=== PATIENT | female | born 1985 | race Two or more races ===

== ENCOUNTER 2019-10-21 18:22 | Emergency (ER) | payer SELFPAY ==
[~2019-10-21] VITALS: Ht 170.2 cm; Wt 112.0 kg
[~2019-10-21 18:22] MED LIST: LEVE500T22 PO
[2019-10-21 18:37] VITALS: BP 142/90
[2019-10-21] MEDS ORDERED: ENOXAPARIN SOD 100 MG/1 ML SYRINGE SC ONE (19:15)
== END 2019-10-21 19:49 | disposition home or self-care (01) ==
LOC: ER 18:22
DX: I82.622 Acute embolism and thrombosis of deep veins of left upper extremity (principal); Z88.6 Allergy status to analgesic agent; Z88.8 Allergy status to other drugs, medicaments and biological substances
CPT/HCPCS: 96372; 99283; J1650

== ENCOUNTER 2019-10-29 15:19 | Inpatient (IN) | payer SELFPAY ==
[~2019-10-29] VITALS: Ht 170.2 cm; Wt 113.5 kg
[2019-10-29 16:40] LABS: Urine Bacteria FEW /hpf (None Seen); Urine Blood Negative /uL (Negative); Urine Specific Gravity 1.007 (1.001-1.035); Urine WBC 1 /hpf (0 - 5)
[2019-10-29 16:48] LABS: Basophils # (auto) 0 uL; Basophils % (auto) 0.4 % (0.0-2.0); Eosinophils # (auto) 0.1 uL; Eosinophils % (auto) 1.5 % (0.0-7.0); Hematocrit 37.3 % (36.0-46.0); Hemoglobin 12.8 g/dL (12.2-16.2); Lymphocytes # (auto) 3.2 uL; Mean Corpuscular Hemoglobin 29.8 pg (28.0-32.0); Mean Corpuscular Hgb Conc. 34.4 g/dL (32.0-36.0); Mean Corpuscular Volume 86.5 fL (80.0-100.0); Monocytes # (auto) 0.4 uL; Monocytes % (auto) 5.8 % (0.0-12.0); Neutrophils % (auto) 51.3 % (37.0-80.0); Platelet Count (auto) 221 10^3/uL (140-450); Red Blood Cells 4.31 10^6/uL (4.0-5.20); Red Cell Distribution Width 13.6 % (11.8-14.3); White Blood Cell 7.8 10^3/uL (4.4-10.8)
[2019-10-29 17:06] LABS: Albumin 3.5 g/dL (3.4-5.0); BUN/Creatinine Ratio 10.6; Calcium 8.9 mg/dL (8.5-10.1); Potassium 3.7 mmol/L (3.5-5.1)
[2019-10-29 17:08] LABS: Bilirubin, Total 0.3 mg/dL (0.2-1.0); Total Protein 7.6 g/dL (6.4-8.2)
[2019-10-29 17:12] LABS: INR 1.2 (0.9-1.15)
[2019-10-29] MEDS ORDERED: MORPHINE SULFATE 4 MG/ML SYR/VIAL IV ONE (20:00)
[2019-10-29] MEDS ORDERED: ONDANSETRON HCL 4 MG/2 ML VIAL IV ONE (20:00)
[2019-10-29] MEDS ORDERED: HYDROmorphone HCL 2 MG/ML VL IV ONE (20:15)
[2019-10-29] MEDS ORDERED: HEPARIN DRIP/D5W 100UNITS/ML 250 ML IV SCH (21:36)
[2019-10-29] MEDS ORDERED: HEPARIN SODIUM (PORCINE) 5000 UNITS/ML 1ML VIAL IV ONE ×2 (21:45)
[2019-10-29 22:49] LABS: Basophils # (auto) 0.1 uL; Basophils % (auto) 1.1 % (0.0-2.0); Eosinophils # (auto) 0.1 uL; Eosinophils % (auto) 0.9 % (0.0-7.0); Hematocrit 39.2 % (36.0-46.0); Lymphocytes # (auto) 3.4 uL; Lymphocytes % (auto) 40.3 % (10.0-50.0); Mean Corpuscular Hemoglobin 28.8 pg (28.0-32.0); Mean Corpuscular Hgb Conc. 33.3 g/dL (32.0-36.0); Mean Corpuscular Volume 86.7 fL (80.0-100.0); Monocytes # (auto) 0.3 uL; Monocytes % (auto) 3.7 % (0.0-12.0); Neutrophils # (auto) 4.6 uL; Nucleated Red Blood Cells % 0.1 %; Platelet Count (auto) 203 10^3/uL (140-450); Red Blood Cells 4.52 10^6/uL (4.0-5.20); Red Cell Distribution Width 13.7 % (11.8-14.3); White Blood Cell 8.4 10^3/uL (4.4-10.8)
[2019-10-29 22:58] LABS: INR 1.05 (0.9-1.15); Partial Thromboplastin Time 26.5 sec (23.64-32.05)
[2019-10-29] MEDS ORDERED: ONDANSETRON HCL 4 MG/2 ML VIAL IV PRN (23:15)
[2019-10-30] MEDS: LORazepam 0.5 MG TAB PO PRN ×2 (02:10→02:12)
[2019-10-30] MEDS ORDERED: RIV20T PO (03:32)
[2019-10-30 05:00] VITALS: BP 154/78
[2019-10-30 06:03] LABS: Basophils # (auto) 0 uL; Basophils % (auto) 0.6 % (0.0-2.0); Eosinophils # (auto) 0.1 uL; Eosinophils % (auto) 1.4 % (0.0-7.0); Hematocrit 36.3 % (36.0-46.0); Hemoglobin 12.5 g/dL (12.2-16.2); Lymphocytes # (auto) 3.7 uL; Mean Corpuscular Hemoglobin 29.8 pg (28.0-32.0); Mean Corpuscular Hgb Conc. 34.5 g/dL (32.0-36.0); Mean Corpuscular Volume 86.2 fL (80.0-100.0); Monocytes # (auto) 0.2 uL; Monocytes % (auto) 3.5 % (0.0-12.0); Neutrophils % (auto) 42.5 % (37.0-80.0); Nucleated Red Blood Cells % 0.1 %; Platelet Count (auto) 195 10^3/uL (140-450); Red Blood Cells 4.21 10^6/uL (4.0-5.20); Red Cell Distribution Width 13.8 % (11.8-14.3); White Blood Cell 7.1 10^3/uL (4.4-10.8)
[2019-10-30 06:20] LABS: BUN/Creatinine Ratio 8.9; Calcium 8.7 mg/dL (8.5-10.1); Potassium 3.8 mmol/L (3.5-5.1)
[2019-10-30 06:22] LABS: INR 1.05 (0.9-1.15); Partial Thromboplastin Time 42.7 sec (23.64-32.05)
[2019-10-30 09:00] VITALS: BP 142/72
[2019-10-30 13:00] VITALS: BP 156/83
[2019-10-30 13:57] LABS: INR 1.02 (0.9-1.15); Partial Thromboplastin Time 37.8 sec (23.64-32.05)
[2019-10-30] MEDS: SODIUM CHLORIDE 0.9% 1,000 ML IV SCH ×3 (15:41→22:38)
[2019-10-30 17:00] VITALS: BP 165/92
[2019-10-30] MEDS ORDERED: HYDROmorphone HCL 2 MG/ML VL IV PRN ×2 (17:00→17:15)
[2019-10-30 22:00] VITALS: BP 121/74
[2019-10-30] MEDS: metroNIDAZOLE 500 MG TAB PO SCH (22:13)
[2019-10-30] MEDS: CIPROFLOXACIN HCL 500 MG TAB PO SCH (22:13)
[2019-10-30] MEDS: ENOXAPARIN SOD 120 MG/0.8 ML SYRINGE SC SCH (22:13)
[2019-10-31] MEDS: SODIUM CHLORIDE 0.9% 1,000 ML IV SCH ×3 (01:30→11:36)
[2019-10-31 05:00] VITALS: BP 121/70
[2019-10-31 06:56] LABS: Basophils # (auto) 0 uL (0-0.2); Basophils % (auto) 0.4 % (0.0-2.0); Eosinophils # (auto) 0.1 uL (0-0.8); Eosinophils % (auto) 1.5 % (0.0-7.0); Hematocrit 38.6 % (36.0-46.0); Hemoglobin 13.2 g/dL (12.2-16.2); Lymphocytes # (auto) 2.7 uL (0.4-5.4); Lymphocytes % (auto) 35.9 % (10.0-50.0); Mean Corpuscular Hgb Conc. 34.1 g/dL (32.0-36.0); Mean Corpuscular Volume 87.8 fL (80.0-100.0); Monocytes # (auto) 0.3 uL (0-1.3); Monocytes % (auto) 4.4 % (0.0-12.0); Neutrophils # (auto) 4.3 uL (1.6-8.6); Neutrophils % (auto) 57.8 % (37.0-80.0); Platelet Count (auto) 196 10^3/uL (140-450); Red Cell Distribution Width 13.8 % (11.8-14.3); White Blood Cell 7.4 10^3/uL (4.4-10.8)
[2019-10-31 07:04] LABS: INR 1.01 (0.9-1.15); Partial Thromboplastin Time 31.6 sec (23.64-32.05)
[2019-10-31 07:08] LABS: Albumin 3.1 g/dL (3.4-5.0); BUN/Creatinine Ratio 13.9; Calcium 8.6 mg/dL (8.5-10.1); Magnesium 2.1 mg/dL (1.6-2.6); Potassium 3.7 mmol/L (3.5-5.1)
[2019-10-31 07:10] LABS: Bilirubin, Total 0.4 mg/dL (0.2-1.0); Total Protein 7.2 g/dL (6.4-8.2)
[2019-10-31 07:20] LABS: Phosphorus 2.6 mg/dL (2.5-4.90)
[2019-10-31 08:00] VITALS: BP 124/78
[2019-10-31 09:58] VITALS: BP 124/78
[2019-10-31] MEDS: ENOXAPARIN SOD 120 MG/0.8 ML SYRINGE SC SCH (10:31)
[2019-10-31] MEDS: metroNIDAZOLE 500 MG TAB PO SCH ×2 (10:31→21:35)
[2019-10-31] MEDS: CIPROFLOXACIN HCL 500 MG TAB PO SCH ×2 (10:31→21:34)
[2019-10-31 12:45] VITALS: BP 146/77
[2019-10-31 17:00] VITALS: BP 140/76
[2019-10-31] MEDS: APIXABAN 5 MG TAB PO SCH (21:35)
[2019-10-31 22:00] VITALS: BP 141/73
[2019-11-01 05:00] VITALS: BP 144/73
[2019-11-01 09:00] VITALS: BP 127/72
[2019-11-01] MEDS ORDERED: IOHEXOL 350 MG/ML 100ML IJ ONE (09:01)
[2019-11-01 11:16] LABS: Folate (Folic Acid) > 24.00 ng/mL (5.38-24)
[2019-11-01] MEDS: APIXABAN 5 MG TAB PO SCH (11:31)
[2019-11-01] MEDS: LORazepam 0.5 MG TAB PO PRN (11:31)
[2019-11-01 13:12] VITALS: BP 122/70
[2019-11-01 13:13] VITALS: BP 144/92
[2019-11-01 13:14] VITALS: BP 136/86
[2019-11-07] MEDS ORDERED: APIXABAN 5 MG TAB PO SCH (22:00)
== END 2019-11-01 14:48 | disposition home or self-care (01) | DRG 301 ==
LOC: ER 15:21 → OVERFLOW 15:22 → WEST WING 23:46
PROVIDERS: ADMIT Hospitalist; ATTEND Internal Medicine Nephrology
DX: I82.622 Acute embolism and thrombosis of deep veins of left upper extremity (principal); G40.909 Epilepsy, unspecified, not intractable, without status epilepticus; E66.01 Morbid (severe) obesity due to excess calories; K52.9 Noninfective gastroenteritis and colitis, unspecified; I95.1 Orthostatic hypotension; F41.0 Panic disorder [episodic paroxysmal anxiety]; R51 Headache; Z79.899 Other long term (current) drug therapy; Z88.6 Allergy status to analgesic agent; Z88.8 Allergy status to other drugs, medicaments and biological substances; Z82.0 Family history of epilepsy and other diseases of the nervous system; Z86.718 Personal history of other venous thrombosis and embolism; Z83.3 Family history of diabetes mellitus; Z82.49 Family history of ischemic heart disease and other diseases of the circulatory system; Z85.43 Personal history of malignant neoplasm of ovary; Z80.9 Family history of malignant neoplasm, unspecified; Z79.01 Long term (current) use of anticoagulants; Z68.39 Body mass index [BMI] 39.0-39.9, adult
CPT/HCPCS: 36415; 70551; 71275; 80048; 80053; 80061; 81001; 81025; 81241; 82607; 82746; 83036; 83090; 83735; 84100; 85025; 85301; 85302; 85303; 85305; 85306; 85610; 85613; 85670; 85705; 85730; 85732; 86147; 87081; 93970; 93971; 96365; 96375; G0378; J2405

== ENCOUNTER 2021-02-17 11:11 | Emergency (ER) | payer MEDICAID ==
[~2021-02-17] VITALS: Ht 170.2 cm; Wt 108.9 kg
[2021-02-17 11:45] LABS: Urine Bacteria FEW /hpf (None Seen); Urine Blood 1+ /uL (Negative); Urine Mucus FEW (None Seen); Urine Specific Gravity 1.029 (1.001-1.035); Urine WBC 6 /hpf (0 - 5)
[2021-02-17 11:47] LABS: Basophils # (auto) 0 10 ^3/uL (0-0.2); Basophils % (auto) 0.6 % (0.0-2.0); Eosinophils # (auto) 0.1 10 ^3/uL (0-0.8); Eosinophils % (auto) 0.8 % (0.0-7.0); Hematocrit 37.7 % (36.0-46.0); Hemoglobin 12.7 g/dL (12.2-16.2); Lymphocytes # (auto) 2.4 10 ^3/uL (0.4-5.4); Mean Corpuscular Hemoglobin 29.7 pg (28.0-32.0); Mean Corpuscular Hgb Conc. 33.6 g/dL (32.0-36.0); Mean Corpuscular Volume 88.3 fL (80.0-100.0); Monocytes # (auto) 0.3 10 ^3/uL (0-1.3); Neutrophils # (auto) 4.5 10 ^3/uL (1.6-8.6); Neutrophils % (auto) 61.6 % (37.0-80.0); Red Blood Cells 4.27 10^6/uL (4.0-5.20); Red Cell Distribution Width 14.7 % (11.8-14.3); White Blood Cell 7.2 10^3/uL (4.4-10.8)
[2021-02-17 11:59] LABS: Albumin 3.3 g/dL (3.4-5.0); Calcium 8.3 mg/dL (8.5-10.1); Potassium 3.8 mmol/L (3.5-5.1)
[2021-02-17 12:03] LABS: BUN/Creatinine Ratio 13.8; Bilirubin, Total 0.3 mg/dL (0.2-1.0); Total Protein 7.4 g/dL (6.4-8.2)
[2021-02-17 17:21] VITALS: BP 116/88
== END 2021-02-17 18:14 | disposition home or self-care (01) ==
LOC: ER 11:11
DX: O20.8 Other hemorrhage in early pregnancy (principal); Z3A.01 Less than 8 weeks gestation of pregnancy; Z88.6 Allergy status to analgesic agent
CPT/HCPCS: 36415; 76801; 76817; 80053; 81001; 84702; 85025

== ENCOUNTER 2021-09-04 16:04 | Emergency (ER) | payer MEDICAID ==
[~2021-09-04] VITALS: Ht 170.2 cm; Wt 104.3 kg
[2021-09-04] MEDS ORDERED: LIDOCAINE 5% TOPICAL PATCH TOP ONE (22:45)
[2021-09-05] LABS: Urine Bacteria FEW /hpf (None Seen); Urine Blood Negative /uL (Negative); Urine Mucus FEW (None Seen); Urine WBC 2 /hpf (0 - 5)
[2021-09-05 01:47] VITALS: BP 111/74
== END 2021-09-05 01:51 | disposition home or self-care (01) ==
LOC: ER 16:04
DX: R20.2 Paresthesia of skin (principal); M79.622 Pain in left upper arm
CPT/HCPCS: 73080; 81001; 93971

== ENCOUNTER 2022-01-06 23:51 | Emergency (ER) | payer MEDICAID ==
[~2022-01-06] VITALS: Ht 170.2 cm; Wt 101.2 kg
[2022-01-07 02:20] VITALS: BP 123/85
== END 2022-01-07 03:41 | disposition home or self-care (01) ==
LOC: ER 23:51
DX: G47.30 Sleep apnea, unspecified (principal); K43.9 Ventral hernia without obstruction or gangrene; Z88.8 Allergy status to other drugs, medicaments and biological substances

== ENCOUNTER 2022-06-10 18:24 | Emergency (ER) | payer MEDICAID ==
[~2022-06-10] VITALS: Ht 170.2 cm; Wt 84.0 kg
[2022-06-10] MEDS ORDERED: KETOROLAC TROMETH 60MG/2ML VIAL IM ONE (22:30)
[2022-06-10 22:50] VITALS: BP 132/83
== END 2022-06-10 22:50 | disposition home or self-care (01) ==
LOC: ER 18:24
DX: S60.221A Contusion of right hand, initial encounter (principal); M79.674 Pain in right toe(s); Z88.6 Allergy status to analgesic agent; W01.0XXA Fall on same level from slipping, tripping and stumbling without subsequent striking against object, initial encounter; Y93.89 Activity, other specified; Y92.89 Other specified places as the place of occurrence of the external cause; Y99.8 Other external cause status
CPT/HCPCS: 73130; 73630; 96372; 99284; J1885

== ENCOUNTER 2022-08-16 18:23 | Emergency (ER) | payer MEDICAID | END 2022-08-16 21:08 | disposition left against medical advice (07) | LOC: ER 18:23 | DX: R42 Dizziness and giddiness (principal); Z53.21 Procedure and treatment not carried out due to patient leaving prior to being seen by health care provider ==

== ENCOUNTER 2024-03-29 22:23 | Emergency (ER) | payer MEDICAID ==
[~2024-03-29] VITALS: Ht 167.6 cm; Wt 95.9 kg
[2024-03-29 23:12] LABS: Urine Bacteria None Seen /hpf (None Seen)
[2024-03-29 23:34] LABS: Urine Blood Negative /uL (Negative); Urine Clarity Clear (Clear); Urine Color Light-Yellow (Yellow); Urine Protein, UAD Negative (Negative); Urine Specific Gravity 1.015 (1.001-1.035); Urine Urobilinogen Normal (Negative); Urine WBC 4 /hpf (0 - 5); Urine pH 5.5 (5.0-9.0)
[2024-03-29 23:58] LABS: Basophils # (auto) 0 10 ^3/uL (0-0.2); Basophils % (auto) 0.4 % (0.0-2.0); Eosinophils # (auto) 0 10 ^3/uL (0-0.8); Eosinophils % (auto) 0.5 % (0.0-7.0); Hematocrit 38.7 % (36.0-46.0); Hemoglobin 13.1 g/dL (12.2-16.2); Lymphocytes # (auto) 2.3 10 ^3/uL (0.4-5.4); Lymphocytes % (auto) 24.6 % (10.0-50.0); Mean Corpuscular Hgb Conc. 33.9 g/dL (32.0-36.0); Mean Corpuscular Volume 85.4 fL (80.0-100.0); Monocytes # (auto) 0.6 10 ^3/uL (0-1.3); Monocytes % (auto) 6.6 % (0.0-12.0); Neutrophils # (auto) 6.2 10 ^3/uL (1.6-8.6); Neutrophils % (auto) 67.9 % (37.0-80.0); Red Blood Cells 4.53 10^6/uL (4.0-5.20); Red Cell Distribution Width 15.1 % (11.8-14.3); White Blood Cell 9.2 10^3/uL (4.4-10.8)
[2024-03-30 00:04] VITALS: PULSE 87; RESP 15; O2SAT 100
[2024-03-30] MEDS: KETOROLAC TROMETH 60MG/2ML VIAL IM ONE (00:06)
[2024-03-30 00:15] LABS: Alanine Aminotransferase 11 U/L (7-40); Albumin 4.4 g/dL (3.2-4.8); Alkaline Phosphatase 83 U/L (46-116); Anion Gap 8 (5-15); Aspartate Aminotransferase < 8 U/L (13-40); BUN/Creatinine Ratio 12.5 (10.0-20.0); Bilirubin, Total 0.6 mg/dL (0.2-1.0); Blood Urea Nitrogen 9 mg/dL (9-23); Calcium 9.8 mg/dL (8.7-10.4); Carbon Dioxide 27 mmol/L (20-30); Chloride 103 mmol/L (98-107); Glucose 97 mg/dL (74-106); Lipase 34 U/L (12-53); Potassium 4.1 mmol/L (3.5-5.1); Sodium 138 mmol/L (136-145); Total Protein 7.4 g/dL (5.7-8.2)
[2024-03-30 05:13] VITALS: BP 120/86; PULSE 76; RESP 19; TEMP 97.9; O2SAT 100
== END 2024-03-30 05:14 | disposition home or self-care (01) ==
LOC: ER 22:23
DX: R10.32 Left lower quadrant pain (principal); R10.31 Right lower quadrant pain; Z88.6 Allergy status to analgesic agent; Z32.02 Encounter for pregnancy test, result negative
CPT/HCPCS: 36415; 74176; 76830; 76856; 80053; 81001; 81025; 83690; 85025; 96372; 99285; J1885